=== PATIENT | female | born 1965 ===

== ENCOUNTER → 2022-01-28 07:41 | Outpatient (CLI) | payer BC, SELFPAY ==
--- NOTE | ~2022-01-28 | DEXA_ITS ---
Bone Density Report Name: MIKKI EAST Age: 56 Sex: Female Ethnicity: White Date of : 1965 Indication: postmenopausal; screening for osteoporosis; Referring Provider: ANIBAL TAPIA Study: Bone densitometry was performed. Exam Date: January 28, 2022 Accession number: [id number] Bone Density: Region BMD T-score Z-score Classification AP Spine (L1-L4) 0.967 -0.7 0.3 Normal Femoral Neck (Left) 0.738 -1.0 0.0 Normal Total Hip (Left) 0.912 -0.2 0.4 Normal Femoral Neck (Right) 0.749 -0.9 0.1 Normal Total Hip (Right) 0.843 -0.8 -0.2 Normal Total Hip Mean 0.878 -0.5 0.1 Normal World Health Organization criteria for BMD impression classify patients as: Normal (T-score at or above -1.0), Osteopenia (T-score between -1.0 and -2.5), or Osteoporosis (T-score at or below -2.5). 10-year Fracture Risk: FRAX not reported because: All T-scores for Spine Total, Hip Total, Femoral Neck at or above -1.0 Clinical Information Provided by Patient: Patient maximum height was 68.7 Menopause Age: 53 No regular weight bearing exercise Drinks caffeinated beverages Onset of menses at age 15 Number of children 0 Impression: The patient has normal bone mass. Discussion: BONE DENSITY IS ABOVE THE MINIMUM DESIRABLE LEVEL AT ALL SKELETAL SITES TESTED. This patient?s bone mineral density is above the minimum desirable level (T-score -1.0 or better) at all sites measured. The patient should follow a healthful lifestyle (good nutrition with adequate calcium and vitamin D, and appropriate weight-bearing exercise). Follow-Up: Consider repeating this study in 5 years or sooner if there is some new clinical indication. Reported by: GAGAN on 01/28/2022 8:40:00 AM. Reviewed, dictated and finalized at location [facility]
--- NOTE | ~2022-01-28 | MM_ITS ---
EXAMINATION: MM screening leonardo BI w froylan HISTORY: Screening TECHNIQUE: Craniocaudal and mediolateral oblique 3-D tomosynthesis images were obtained and synthetic 2-D images were generated. CAD analysis was submitted and interpreted. COMPARISON: No prior mammogram is available for comparison at this institution. BREAST PARENCHYMAL COMPOSITION: The breasts are heterogeneously dense, which may obscure small masses . FINDINGS: There are multiple asymmetries in the left breast on CC view. There are clustered indetermi lucas right breast calcifications in the lower inner quadrant of the right breast, middle third. IMPRESSION: 1. Clustered indeterminate right breast calcifications, lower inner quadrant. Left breast asymmetries scattered throughout the left breast on CC view. 2. Comparison to previous outside mammograms recommended. BI-RADS Category 0: Incomplete: Needs additional imaging evaluation. Reviewed, dictated and finalized at location A. IMPRESSION: 1. Clustered indeterminate right breast calcifications, lower inner quadrant. L eft breast asymmetries scattered throughout the left breast on CC view. 2. Comparison to previous outside mammograms recommended. BI-RADS Category 0: Incomplete: Needs additional imaging evaluation.
== END ==
PROVIDERS: Visit Provider Obstetrics & Gynecology Gynecology
DX: Z12.31 Encounter for screening mammogram for malignant neoplasm of breast (principal); Z78.0 Asymptomatic menopausal state; R92.8 Other abnormal and inconclusive findings on diagnostic imaging of breast
CPT/HCPCS: 77063; 77067; 77080

== ENCOUNTER 2024-07-07 16:19 | Emergency (ER) | payer BC, SELFPAY ==
--- NOTE | 2024-07-07 16:25 | ED.EYEPROB ---
HPI - Eye Problem General Chief complaint: Eye Problems Stated complaint: [facility] Time Seen by Provider: 07/07/24 16:26 Source: patient Mode of arrival: ambulatory Limitations: no limitations History of Present Illness HPI Narrative: Cecelia is a 58-year-old female patient presenting to the clinic today with complaints of possible pinkeye. She reports she has bilateral itchy watery eyes with crusting and scaling also reports scaling or crusting and itchiness behind bilateral ears. This has been going off and on since December. Has tried topical hydrocortisone cream and Aquaphor. Related Data Allergies Allergy/AdvReac Type Severity Reaction Status Date / Time No Known Allergies Allergy Verified 07/07/24 16:27 Review of Systems Review of Systems: Pertinent positives per HPI. Patient denies any fever, chills, rash, headache, visual changes, dizziness, cough, runny nose, sore throat, shortness of breath, chest pain, palpitations, nausea, vomiting, diarrhea, constipation, abdominal pain, or any urinary issues. PMFSH Comments At the time of my signature, I reviewed and agree with the nursing past medical, surgical, social, and family history. There is no relevant family history pertinent to the patient complaint. Exam Narrative: General: Well-developed, well nourished, in no apparent distress Head: Normocephalic, atraumatic Eyes: Pupils equally round and reactive to light bilaterally, EOM intact, sclera and conjunctive injected, no discharge, bilateral lid mildly swelling, itchy, with redness, and scaling Ears: TMs intact and clear, ear canals clear, no drainage, grossly hearing normal. Scaly rash behind bilateral ears with clear oozing fluid. Nose: Nares patent, no discharge, no inflammation, no sinus tenderness. Mouth: Oropharynx without lesions or masses, good dentition, MMM. Neck: Supple, trachea midline, no enlargement of anterior or posterior cervical nodes, no thyroid masses or goiter palpable. Cardio: Regular rate and rhythm, s1 and s2 normal, no murmur appreciated. Resp: Clear to auscultation bilaterally anteriorly and posteriorly, no rhonchi, rales, wheezing or rubs Course Course Emergency Course: Portions of this record may have been created with voice recognition software. Level of Care: Express Care Visit Vital Signs Vital signs: Vital signs reviewed MDM - Eye Problem MDM Narrative Medical decision making narrative: At the time of visit patient is resting comfortably on the exam table. Patient appears to be nontoxic. Supportive measures were discussed with the patient and they voiced understanding discharge instructions and agrees to treatment plan. Return precautions reviewed Differential Diagnosis Differential diagnosis: Likely corneal abrasion, conjunctivitis, acute iritis, hyphema, periorbital cellulitis, subconjunctival hemorrhage, glaucoma, corneal ulcer and ruptured globe Discharge Plan Discharge Clinical Impression: Allergic contact dermatitis of external ear, Acute allergic conjunctivitis of both eyes Dermatitis of eyelid Qualifiers: Dermatitis of eyelid type: allergic Laterality: bilateral Eyelid: both upper and lower Qualified Code(s): H01.111 - Allergic dermatitis of right upper eyelid Patient Disposition: Home, Self-Care Condition: Stable Instructions: Antibiotic Form, Dermatitis (ED) Additional Instructions: Apply triamcinolone cream as directed Avoid hot showers Avoid scratching as this can cause a secondary infection May take benadryl 25-50mg every 6 hours as needed for itching. Follow up with your PCP in 3-5 days if symptoms persist or sooner if they worsen Go to the Emergency Room if symptoms worsen- fever, rash spreading with treatment, shortness of breath, tongue swelling, drooling, or chest pain Prescriptions: New azelastine 0.05 % drops 1 drp EACH EYE BID 7 Days Qty: 6 0RF triamcinolone acetonide 0.1 % cream 1 applic topical BID 7
[2024-07-07 16:26] VITALS: BP 134/82; PULSE 84; RESP 16; TEMP 36.7; O2SAT 100
== END 2024-07-07 16:37 | disposition home or self-care (01) ==
PROVIDERS: Emergency Provider Nurse Practitioner Family
DX: H10.13 Acute atopic conjunctivitis, bilateral (principal); L23.9 Allergic contact dermatitis, unspecified cause
CPT/HCPCS: 99213; G0463